=== PATIENT | female | born 1980 | race Caucasian/White ===

== ENCOUNTER 2024-01-06 15:50 | Emergency (ER) | payer MEDICAID ==
[~2024-01-06] VITALS: Ht 175.3 cm; Wt 144.2 kg
[2024-01-06 15:50] VITALS: BP_SYST 158; PULSE 96; RESP 20; TEMP 97.1; O2SAT 99
[2024-01-06] MEDS: methylPREDNISolone SOD SUCC/PF 62.5 MG/ML VIAL IVP ONE (16:17)
[2024-01-06] MEDS: DIPHENHYDRAMINE INJ 50 MG/ML VIAL IVP ONE (16:17)
[2024-01-06] MEDS ORDERED: DIPH25TA62 PO (17:31)
[2024-01-06] MEDS ORDERED: PRED50TA PO (17:31)
[2024-01-06 18:38] VITALS: BP_SYST 122; PULSE 87; RESP 19; TEMP 97.8; O2SAT 99
== END 2024-01-06 18:37 | disposition home or self-care (01) ==
LOC: SED 15:50
DX: T78.1XXA Other adverse food reactions, not elsewhere classified, initial encounter (principal); Z91.018 Allergy to other foods; X58.XXXA Exposure to other specified factors, initial encounter
CPT/HCPCS: 99284; 96374; 96375; J1200; J2930